=== PATIENT | female | born 1960 | race Caucasian/White ===

== ENCOUNTER → 2016-12-21 | Outpatient (CLI) | payer MEDICAID | LOC: CARD 12:02 | PROVIDERS: ATTEND Nurse Practitioner Family | DX: I51.7 Cardiomegaly (principal) | CPT/HCPCS: 93306 ==

== ENCOUNTER 2021-07-26 20:22 | Emergency (ER) | payer MEDICAID ==
[~2021-07-26] VITALS: Ht 165 cm; Wt 118.0 kg
--- NOTE | 2021-07-26 20:42 | ED Lower Extremity ---
General Chief Complaint: Lower Extremity Stated Complaint: L LOWER Q PAIN Source: patient Exam Limitations: no limitations History of Present Illness Date Seen by Provider: July 26, 2021 Time Seen by Provider: 20:23 Initial Comments Patient to the ER by EMS from home with chief complaint that she was walking out on her porch to sit on the steps when she stepped down 2 steps and the board broke and needs her and the front of her left tibia/fibula smashed into the subsequent step below. She did not hit her head nor lose consciousness. She is not on blood thinners. 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 Laboy. She is not having any nausea chest pain cough shortness of air or dysuria. She rates her pain as a 10 out of 10. Allergies and Home Medications Allergies Coded Allergies: Penicillins (Verified Allergy, Unknown, pruritic rash, 07/26/21) Patient Home Medication List Home Medication List Reviewed: Yes Review of Systems Constitutional: No chills, No diaphoresis EENTM: No ear discharge, No ear pain Respiratory: No cough, No hemoptysis Cardiovascular: No chest pain, No palpitations Gastrointestinal: No abdominal pain, No nausea, No vomiting Genitourinary: No discharge, No dysuria Musculoskeletal: No back pain; joint pain (Left knee and lower leg) All Other Systems Reviewed Negative Unless Noted: Yes Past Zyhookc-Eswmig-Svyshk Hx Patient Social History Tobacco Use?: No Use of E-Cig and/or Vaping dev: No Substance use?: No Physical Exam Vital Signs Capillary Refill : Height, Weight, BMI Height: '" Weight: lbs. oz. kg; BMI Method: General Appearance: moderate distress, obese HEENT: PERRL/EOMI, pharynx normal Neck: full range of motion, normal inspection Cardiovascular: normal peripheral pulses, regular rate, rhythm Respiratory: no respiratory distress, no accessory muscle use Hips: bilateral hip non-tender, bilateral hip normal inspection, bilateral hip normal range of motion Legs: right leg non-tender, right leg normal inspection, right leg normal range of motion, right leg no evidence of injury; left leg bone tenderness (Anterior proximal tibia with large hematoma decimeter wide), left leg ecchymosis (Anterior proximal left tibia), left leg pain, left leg soft tissue tenderness, left leg swelling Knees: right knee non-tender, right knee normal inspection, right knee normal range of motion, right knee no evidence of injury; left knee pain, left knee s oft tissue tenderness, left knee swelling Ankles: bilateral ankle non-tender, bilateral ankle normal inspection, bilateral ankle normal range of motion, bilateral ankle no evidence of injury Feet: bilateral foot non-tender, bilateral foot normal inspection, bilateral foot normal range of motion, bilateral foot no evidence of injury Neurologic/Tendon: normal sensation, normal motor functions, normal tendon functions, responds to pain, no evidence tendon injury Neurologic/Psychiatric: alert, normal mood/affect, oriented x 3 Skin: warm/dry, ecchymosis (Decimeter wide hematoma over the proximal left tibia/fibula) Progress/Results/Core Measures Results/Orders My Orders Orders - KELI JEFFERSON Fentanyl Inj (Sublimaze Injection) (07/26/21 20:45) Tibia/Fibula, Left, 2 Views (07/26/21 20:35) Knee, Left, 3 Views (07/26/21 20:35) Rx-Hydrocodone/Apap 5-325 Mg (Rx-Vicodin (07/26/21 22:15) Medications Given in ED Current Medications Medications Dose Ordered Sig/Genesis Route Start Time Stop Time Status Last Admin Dose Admin Fentanyl Citrate 75 mcg ONCE ONCE IVP 07/26/21 20:45 07/26/21 20:46 DC 07/26/21 20:53 75 MCG Progress Progress Note : Time: 20:41 Progress Note Patient was able to complete a phone call and an interview with this provider but rates her pain as a 10/10. We will give her 75 mcg of fentanyl and obtain some plain films of her left knee and left tibia/fibula. An ice pack has been provided. Diagnostic Imaging Diagonstic Imaging: Xray Plain Films/CT/US/NM/MRI: knee (Left) Comments [facility]. [place], [place] NAME: MIKAL SAWANT [facility] REC#: [id number] PT STATUS: REG ER : 1960 PHYSICIAN: KELI JEFFERSON MD ADMIT DATE: 07/26/21/ER Signed Date of Exam:07/26/21 KNEE, LEFT, 3 VIEWS CLINICAL HISTORY: Fall. Left knee pain. COMPARISON: None. TECHNIQUE: 3 views of the left knee. FINDINGS: There is no acute fracture or dislocation of the left knee. Alignment is anatomic. Postsurgical changes of unicompartmental arthroplasty changes seen in the medial compartment of the left knee. No periprosthetic fracture or loosening. No large joint effusion. Generalized soft tissue edema is seen throughout the left knee. IMPRESSION: 1. No acute fracture or dislocation in the left knee. 2. 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 No evidence of hardware complication. 3. Generalized soft tissue edema throughout the left knee. Dictated by: Dictated on workstation # [id number] Dict: 07/26/212142 Trans: 07/26/212146 [facility] [id number] Interpreted by: TACOS SUMMERS DO Electronically signed by: TACOS SUMMERS DO 07/26/212146 Reviewed: Reviewed by Me Diagonstic Imaging: Xray Plain Films/CT/US/NM/MRI: leg (Left) Comments [facility] [place], [place] NAME: MIKAL SAWANT Mauricio [facility] REC#: [id number] PT STATUS: REG ER : 1960 PHYSICIAN: KELI JEFFERSON MD ADMIT DATE: 07/26/21/ER Signed Date of Exam:07/26/21 TIBIA/FIBULA, LEFT, 2 VIEWS CLINICAL HISTORY: Fall. Left leg pain. COMPARISON: None TECHNIQUE: 4 views of the left tibia and fibula. FINDINGS: There is no acute fracture or dislocation of the left tibia and fibula. Alignment is anatomic. No focal osseous lesions. IMPRESSION: 1. No acute fracture or dislocation is seen in the left tibia and fibula. Dictated by: Dictated on workstation # [id number] Dict: 07/26/212143 Trans: 07/26/212146 [facility] [id number] Interpreted by: TACOS SUMMERS DO Electronically signed by: TACOS SUMMERS DO 07/26/212146 Reviewed: Reviewed by Me Departure Impression Primary Impression: Fall Qualified Codes: W19.XXXA - Unspecified fall, initial encounter Additional Impression: Hematoma of left lower leg Disposition: HOME, SELF-CARE Condition: Stable Departure-Patient Inst. Decision time for Depature: 22:12 Referrals: GAURI CREWS DO (PCP) Primary Care Physician ZHOU MCMAHON APRN (Family) Primary Care Physician Patient Instructions: HEMATOMA Add. Discharge Instructions: You have a hematoma which is a collection of blood in the soft tissue. This will resolve in a few weeks. You can wrap it with an Andrae wrap for compression and use ice 20 minutes on every 2 hours while awake for the first 2 to 3 days to reduce swelling and pain. Tylenol 1000 mg every 8 hours needed for pain. Hydrocodone 1 tablet every 6 hours as needed for severe pain. Elevate your leg above the level of your heart while not in use. Follow-up with your primary care office as needed for symptom management. All discharge instructions reviewed with patient and/or family. Voiced understanding. Scripts Hydrocodone/Acetaminophen (Hydrocodone-Acetamin 5-325 mg) 5 Mg-325 Mg Tablet 1 TAB PO Q6H PRN for PAIN-MODERATE (5-7), #10 TAB 0 Refills Prov: KELI JEFFERSON 07/26/21 KELI JEFFERSON July 26, 2021 20:42
[2021-07-26] MEDS ORDERED: fentaNYL INJ 100 MCG/2 ML AMP IVP ONE (20:45)
--- NOTE | 2021-07-26 21:46 | Diagnostic Imaging Report ---
CLINICAL HISTORY: Fall. Left leg pain. COMPARISON: None TECHNIQUE: 4 views of the left tibia and fibula. FINDINGS: There is no acute fracture or dislocation of the left tibia and fibula. Alignment is anatomic. No focal osseous lesions. IMPRESSION: 1. No acute fracture or dislocation is seen in the left tibia and fibula. Dictated by: Dictated on workstation # [id number]
--- NOTE | 2021-07-26 21:46 | Diagnostic Imaging Report ---
CLINICAL HISTORY: Fall. Left knee pain. COMPARISON: None. TECHNIQUE: 3 views of the left knee. FINDINGS: There is no acute fracture or dislocation of the left knee. Alignment is anatomic. Postsurgical changes of unicompartmental arthroplasty changes seen in the medial compartment of the left knee. No periprosthetic fracture or loosening. No large joint effusion. Generalized soft tissue edema is seen throughout the left knee. IMPRESSION: 1. No acute fracture or dislocation in the left knee. 2. 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 No evidence of hardware complication. 3. Generalized soft tissue edema throughout the left knee. Dictated by: Dictated on workstation # [id number]
[2021-07-26] MEDS ORDERED: ACHD5005 PO (22:33)
[2021-07-26 22:46] VITALS: BP 156/90
== END 2021-07-26 22:46 | disposition home or self-care (01) ==
LOC: EDUNIT# 20:22 → ER 20:27
DX: S80.12XA Contusion of left lower leg, initial encounter (principal); Z96.653 Presence of artificial knee joint, bilateral; W10.9XXA Fall (on) (from) unspecified stairs and steps, initial encounter
CPT/HCPCS: 73562; 73590